=== PATIENT | female | born 1960 | race Hispanic/Latino ===

== ENCOUNTER 2018-12-25 11:35 | Emergency (ER) | payer SELFPAY ==
--- NOTE | 2018-12-25 12:58 | RAD REPORT ---
EXAM DESCRIPTION: RAD - Hand Left 3 View - 12/25/2018 12:41 pm CLINICAL HISTORY: Fall injury, swelling and redness to left hand COMPARISON: No comparisons FINDINGS: Soft tissue swelling affects the fifth digit. Small bony fragment projects over the dorsal aspect of the DIP joint of the fifth finger which could be a small fracture fragment. No dislocation
[2018-12-25] MEDS ORDERED: HYDROCODONE/APAP 5/325 MG TAB ONE (14:11)
--- NOTE | 2018-12-25 15:56 | EDPHYS ---
Physician Documentation [facility] Name: Pennie Welch Age: 58 yrs Sex: Female : 1960 Arrival Date: 12/25/2018 Time: 11:45 Bed 12 Private MD: ED Physician Kg Lancaster HPI: 12/25 14:04 This 58 yrs old Female presents to ER via Ambulatory with complaints of Finger Injury. kb 14:04 The patient or guardian reports decreased range of motion, injury, pain, swelling, kb tenderness. The complaints affect the left little finger. Context: The problem was sustained at home, resulted from a fall. Onset: The symptoms/episode began/occurred 1 week(s) ago. Modifying factors: The symptoms are alleviated by nothing, the symptoms are aggravated by movement. Associated signs and symptoms: The patient has no apparent associated signs or symptoms. Severity of symptoms: At their worst the symptoms were moderate, in the emergency department the symptoms are unchanged. The patient has not experienced similar symptoms in the past. The patient has not recently seen a physician. Pt reports she fell about a week ago hurt her left pinky finger. Reports pain has been worse with swelling over the last 3 days. . Historical: - Allergies: 14:19 Tylenol; iw 14:19 PENICILLINS; iw 14:19 Ibuprofen; iw - Immunization history:: Adult Immunizations unknown. - Social history:: Smoking status: unknown. - Ebola Screening: : Patient negative for fever greater than or equal to 101.5 degrees Fahrenheit, and additional compatible Ebola Virus Disease symptoms Patient denies exposure to infectious person Patient denies travel to an Ebola-affected area in the 21 days before illness onset No symptoms or risks identified at this time. ROS: 14:04 Constitutional: Negative for fever, chills, and weight loss, Cardiovascular: Negative kb for chest pain, palpitations, and edema, Respiratory: Negative for shortness of breath, cough, wheezing, and pleuritic chest pain, Abdomen/GI: Negative for abdominal pain, nausea, vomiting, diarrhea, and constipation, Skin: Negative for injury, rash, and discoloration, Neuro: Negative for headache, weakness, numbness, tingling, and seizure. 14:04 MS/extremity: Positive for injury or acute deformity, decreased range of motion, pain, swelling, tenderness, of the left little finger. Exam: 14:04 Constitutional: This is a well developed, well nourished patient who is awake, alert, kb and in no acute distress. Head/Face: Normocephalic, atraumatic. Chest/axilla: Normal chest wall appearance and motion. Nontender with no deformity. No lesions are appreciated. Cardiovascular: Regular rate and rhythm with a normal S1 and S2. No gallops, murmurs, or rubs. Normal PMI, no JVD. No pulse deficits. Respiratory: Lungs have equal breath sounds bilaterally, clear to auscultation and percussion. No rales, rhonchi or wheezes noted. No increased work of breathing, no retractions or nasal flaring. Abdomen/GI: Soft, non-tender, with normal bowel sounds. No distension or tympany. No guarding or rebound. No evidence of tenderness throughout. Skin: Warm, dry with normal turgor. Normal color with no rashes, no lesions, and no evidence of cellulitis. Neuro: Awake and alert, GCS 15, oriented to person, place, time, and situation. Cranial nerves II-XII grossly intact. Motor strength 5/5 in all extremities. Sensory grossly intact. Cerebellar exam normal. Normal gait. 14:04 Musculoskeletal/extremity: Extremities: grossly normal except: noted in the left little finger: decreased ROM, pain, swelling, tenderness, ROM: limited active range of motion due to pain, in the left little finger, Circulation is intact in all extremities. Sensation intact. Vital Signs: 12:05 BP 130 / 73; Pulse 70; Resp 16; Temp 97.8; Pulse Ox 100% on R/A; la1 MDM: 13:18 Patient medically screened. kb 14:03 Data reviewed: vital signs, nurses notes. Data interpreted: Pulse oximetry: on room air kb is 100 %. Interpretation: normal. Counseling: I had a detailed discussion with the patient and/or guardian regarding: the historical points, exam findings, and any diagnostic results supporting the discharge/admit diagnosis, radiology results, the need for outpatient follow up, a family practitioner, to return to the emergency department if symptoms worsen or persist or if there are any questions or concerns that arise at home. 12/25 14:02 Order name: Finger Splint; Complete Time: 14:19 kb Administered Medications: 14:19 Not Given (Patient Refused): [place] 5 mg-325 mg 1 tabs PO once; RASS on ADMIN: Combtv4, iw Very Agttd3, Agttd2, Rstlss1, AlertClm0, Drwsy-1, Lt Sdtn-2, Mod Sdtn-3, Dp Sdtn-4, UnArsble-5 Disposition: 18:43 Co-signature as Attending Physician, Kg Lancaster MD. rn Disposition: 12/25/18 14:12 Discharged to Home. Impression: Displaced fracture of medial phalanx of left little finger. - Condition is Stable. - Discharge Instructions: Finger Fracture, [id number]. - Prescriptions for Tramadol 50 mg Oral Tablet - take 1 tablet by ORAL route every 8 hours as needed; 12 tablet. - Medication Reconciliation Form, Thank You Letter, Antibiotic Education, Prescription Opioid Use form. - Follow up: Emergency Department; When: As needed; Reason: Worsening of condition. Follow up: Private Physician; When: 2 - 3 days; Reason: Recheck today's complaints, Continuance of care, Re-evaluation by your physician. Signatures: Nicolette Bowen, LOAN REVIEW OFFICER-C LOAN REVIEW OFFICER-Ckb Xi Olsen RN RN Joanna Coles ms, Roman, MD MD cabin furnishings installer: (The following items were deleted from the chart) 14:28 14:12 12/25/2018 14:12 Discharged to Home. Impression: Displaced fracture of medial ms phalanx of left little finger. Condition is Stable. Forms are Medication Reconciliation Form, Thank You Letter, Antibiotic Education, Prescription Opioid Use. Follow up: Emergency Department; When: As needed; Reason: Worsening of condition. Follow up: Private Physician; When: 2 - 3 days; Reason: Recheck today's complaints, Continuance of care, Re-evaluation by your physician. kb
--- NOTE | 2018-12-25 15:56 | ER ---
Nurse's Notes [facility] Name: Pennie Welch Age: 58 yrs Sex: Female : 1960 Arrival Date: 12/25/2018 Time: 11:45 Bed 12 Private MD: Diagnosis: Displaced fracture of medial phalanx of left little finger Presentation: 12/25 12:04 Presenting complaint: Patient states: About a week ago I had a fall, three days later I la1 started having pain in my left pinky finger. Finger appears red and swollen. Transition of care: patient was not received from another setting of care. Onset of symptoms was December 25, 2018. Risk Assessment: Do you want to hurt yourself or someone else? Patient reports no desire to harm self or others. Initial Sepsis Screen: Does the patient meet any 2 criteria? No. Patient's initial sepsis screen is negative. Does the patient have a suspected source of infection? No. Patient's initial sepsis screen is negative. Care prior to arrival: None. 12:04 Method Of Arrival: Ambulatory la1 12:04 Acuity: PEGGY 4 la1 Triage Assessment: 13:50 General: Appears in no apparent distress. Behavior is calm. Injury Description: Bruise iw sustained to left little finger. Historical: - Allergies: 14:19 Tylenol; iw 14:19 PENICILLINS; iw 14:19 Ibuprofen; iw - Immunization history:: Adult Immunizations unknown. - Social history:: Smoking status: unknown. - Ebola Screening: : Patient negative for fever greater than or equal to 101.5 degrees Fahrenheit, and additional compatible Ebola Virus Disease symptoms Patient denies exposure to infectious person Patient denies travel to an Ebola-affected area in the 21 days before illness onset No symptoms or risks identified at this time. Screenin:25 Abuse screen: Denies threats or abuse. Denies injuries from another. Nutritional iw screening: No deficits noted. Tuberculosis screening: No symptoms or risk factors identified. Fall Risk Fall in past 12 months (25 points). Assessment: 13:50 General: Appears in no apparent distress. Behavior is calm. Pain: Complains of pain in iw left little finger. Neuro: Level of Consciousness is awake, alert, obeys commands. Cardiovascular: Patient's skin is warm and dry. Respiratory: Respiratory effort is even, unlabored, Respiratory pattern is regular, symmetrical. Derm: Skin is intact, is healthy with good turgor. Musculoskeletal: Range of motion: limited in left little finger Swelling present in left little finger. Vital Signs: 12:05 BP 130 / 73; Pulse 70; Resp 16; Temp 97.8; Pulse Ox 100% on R/A; la1 ED Course: 11:45 Patient arrived in ED. as 12:05 Triage completed. la1 12:05 Arm band placed on left wrist. la1 12:50 Nicolette Bowen FNP-C is [facility]. kb 12:50 Kg Lancaster MD is Attending Physician. kb 13:18 Xi Olsen, RN is Primary Nurse. iw 13:50 Patient has correct armband on for positive identification. iw 14:25 No provider procedures requiring assistance completed. Patient did not have IV access iw during this emergency room visit. Administered Medications: 14:19 Not Given (Patient Refused): [place] 5 mg-325 mg 1 tabs PO once; RASS on ADMIN: Combtv4, iw Very Agttd3, Agttd2, Rstlss1, AlertClm0, Drwsy-1, Lt Sdtn-2, Mod Sdtn-3, Dp Sdtn-4, UnArsble-5 Outcome: 14:12 Discharge ordered by MD. kb 14:27 Discharged to home ambulatory. iw 14:27 Condition: good 14:27 Discharge instructions given to patient, family, Instructed on discharge instructions, follow up and referral plans. medication usage, Demonstrated understanding of instructions, follow-up care, medications, Prescriptions given X 1. 14:28 Patient left the ED. ms Signatures: Nicolette Bowen FNP-C FNP-Bertha Bailon as Xi Olsen, RN HUE iw Joanna Ardon ms, Lee, RN RN la1
[2018-12-25 18:04] VITALS: BP 130/73; TEMP 97.8; O2SAT 100
== END 2018-12-25 14:28 | disposition home or self-care (01) ==
LOC: ER 11:35
DX: S62.627A Displaced fracture of middle phalanx of left little finger, initial encounter for closed fracture (principal); W19.XXXA Unspecified fall, initial encounter; Y93.9 Activity, unspecified; Y92.9 Unspecified place or not applicable; Z88.0 Allergy status to penicillin; Z88.6 Allergy status to analgesic agent
CPT/HCPCS: 99282

== ENCOUNTER 2020-07-28 18:26 | Emergency (ER) | payer SELFPAY ==
--- NOTE | 2020-07-28 20:01 | RAD REPORT ---
EXAM DESCRIPTION: RAD - Shoulder Left 2 View - 07/28/2020 7:38 pm CLINICAL HISTORY: PAIN, decreased range of motion COMPARISON: No comparisons TECHNIQUE: Internal and external rotation views of the left shoulder were obtained. FINDINGS: No dislocation of the proximal humerus. AC joint is normal. Acromial humeral joint space i s normal. A 15 x 5 mm calcification is seen along the lateral margin of the humeral head. In this location, porter cific bursitis would be suspected. This is potentially a small bone avulsion from the greater tuberos ity though there is no trauma or precipitating event detailed. No pathologic bone process. IMPRESSION: Suspected left shoulder calcific bursitis. Bone avulsion is unlikely but not entirely excluded.
[2020-07-28] MEDS ORDERED: HYDROCODONE/APAP 10/325 TAB ONE (23:08)
[2020-07-28] MEDS ORDERED: KETOROLAC 30 MG/ML INJ ONE (23:08)
--- NOTE | 2020-07-28 23:49 | ER ---
Nurse's Notes [facility] Name: Pennie Welch Age: 60 yrs Sex: Female : 1960 Arrival Date: 07/28/2020 Time: 18:27 Bed 18 Private MD: Diagnosis: Bursitis of left shoulder Presentation: 07/28 19:12 Chief complaint: Patient states: Reports Tuesday she was preparing dinner and started em having left arm pain, states she is not able to lift arm due to the pain, reports the pain is making her nauseous. Coronavirus screen: At this time, the client does not indicate any symptoms associated with coronavirus-19. Ebola Screen: No symptoms or risks identified at this time. No acute neurological deficit is noted. Initial Sepsis Screen: Does the patient meet any 2 criteria? No. Patient's initial sepsis screen is negative. Does the patient have a suspected source of infection? No. Patient's initial sepsis screen is negative. Risk Assessment: Do you want to hurt yourself or someone else? Patient reports no desire to harm self or others. Onset of symptoms was July 25, 2020. 19:12 Method Of Arrival: Wheelchair em 19:12 Acuity: PEGGY 3 em Triage Assessment: 19:16 The onset of the patients symptoms was July 28, 2020 at 19:16. General: Appears em uncomfortable, Behavior is appropriate for age. Pain: Denies pain. Neuro: Level of Consciousness is awake, alert, obeys commands, Oriented to person, place, time. Historical: - Allergies: 19:15 PENICILLINS; em 19:15 Aspirin; em 22:54 NSAIDS; ea - PSHx: 19:15 c section; polyp removal; em - Immunization history:: Adult Immunizations up to date. - Social history:: Smoking status: Patient denies any tobacco usage or history of. Screenin:55 Abuse screen: Denies threats or abuse. Nutritional screening: No deficits noted. ea Tuberculosis screening: No symptoms or risk factors identified. Fall Risk None identified. Assessment: 19:16 VAN Scoring: Arm Drift: Patients demonstrates NO arm weakness. Patient is VAN Negative. ea 07/29 00:17 Reassessment: Patient and/or family updated on plan of care and expected duration. Pain ea level reassessed. Patient is alert, oriented x 3, equal unlabored respirations, skin warm/dry/pink. Discharge instruction given to patient verbalized the understanding of instruction. Pt left ED ambulatory tolerating well. Patient states feeling better. Vital Signs: 07/28 19:12 BP 123 / 83; Pulse 76; Resp 18; Temp 98.5; Pulse Ox 99% ; Weight 66.22 kg; Height 5 ft. em 6 in. (167.64 cm); 07/29 00:00 BP 128 / 70; Pulse 70; Resp 18; Temp 98.2; Pulse Ox 99% ; ea 07/28 19:12 Body Mass Index 23.56 (66.22 kg, 167.64 cm) em ED Course: 07/28 18:27 Patient arrived in ED. ds1 19:15 Triage completed. em 19:38 XRAY Shoulder LEFT 2 view In Process Unspecified. EDMS 22:41 Jimena Johnson RN is Primary Nurse. ea 22:41 Lan Avila NP is PHCP. pm1 22:41 Kg Lancaster MD is Attending Physician. pm1 22:41 Patient has correct armband on for positive identification. Bed in low position. Call ea light in reach. Side rails up X2. 22:55 Arm band placed on right wrist. Patient placed in an exam room, on a stretcher, on ea pulse oximetry. 07/29 00:18 No provider procedures requiring assistance completed. Patient did not have IV access ea during this emergency room visit. Administered Medications: 07/28 22:54 Drug: [place] (HYDROcodone-acetaminophen) 10 mg-325 mg 1 tabs Route: PO; ea 07/29 00:19 Follow up: Response: No adverse reaction; Pain is decreased ea 07/28 22:54 Not Given (pt reports she is allergic to NSAIDS): TORadol (ketorolac) 30 mg IM once ea Outcome: 23:49 Discharge ordered by . pm1 07/29 00:18 Discharged to home ambulatory, with family. ea Condition: stable Discharge instructions given to patient, Instructed on discharge instructions, follow up and referral plans. medication usage, Demonstrated understanding of instructions, follow-up care, medications, Prescriptions given X 1. 00:20 Patient left the ED. ea Signatures: Dispatcher [employer] [facility] Raymond Walters RN RN Shayna Santiago ds1 Lan Avila NP QUALITY SPECIALIST pm1 Jimena Johnson, RN RN ea
--- NOTE | 2020-07-28 23:50 | EDPHYS ---
Physician Documentation [facility] Name: Pennie Welch Age: 60 yrs Sex: Female : 1960 Arrival Date: 07/28/2020 Time: 18:27 Bed 18 Private MD: ED Physician Kg Lancaster HPI: 07/28 22:59 This 60 yrs old Female presents to ER via Wheelchair with complaints of Pain pm1 left shoulder. 22:59 The patient or guardian complains of pain, that is acute. pm1 22:59 left shoulder. Context: The problem was sustained at home, resulted from an unknown pm1 reason, The patient reports no obvious deformity. Decreased ROM due to pain. Onset: The symptoms/episode began/occurred 3 day(s) ago. Modifying factors: the symptoms are alleviated by remaining still, The symptoms are aggravated by movement. Associated signs and symptoms: Pertinent positives: Numbness in left arm nausea from the pain. Severity of symptoms: in the emergency department the symptoms are unchanged. Treatment prior to arrival includes: no previous treatment. The patient has not experienced similar symptoms in the past. The patient has not recently seen a physician. Historical: - Allergies: 19:15 PENICILLINS; em 19:15 Aspirin; em 22:54 NSAIDS; ea - PSHx: 19:15 c section; polyp removal; em - Immunization history:: Adult Immunizations up to date. - Social history:: Smoking status: Patient denies any tobacco usage or history of. ROS: 22:59 Constitutional: Negative for fever, chills, and weight loss. pm1 22:59 Cardiovascular: Negative for chest pain, palpitations, and edema, Respiratory: Negative for shortness of breath, cough, wheezing, and pleuritic chest pain, Back: Negative for injury and pain. 22:59 Skin: Negative for injury, rash, and discoloration. 22:59 Abdomen/GI: Positive for nausea, Negative for abdominal pain, vomiting, diarrhea. 22:59 MS/extremity: Positive for pain, of the left shoulder. 22:59 Neuro: Positive for numbness, of the left arm, Negative for headache, weakness. Exam: 22:59 Constitutional: This is a well developed, well nourished patient who is awake, alert, pm1 and in no acute distress. Head/Face: Normocephalic, atraumatic. Neck: Trachea midline, no thyromegaly or masses palpated, and no cervical lymphadenopathy. Supple, full range of motion without nuchal rigidity, or vertebral point tenderness. No Meningismus. 22:59 Back: No spinal tenderness. No costovertebral tenderness. Full range of motion. Skin: Warm, dry with normal turgor. Normal color with no rashes, no lesions, and no evidence of cellulitis. 22:59 Cardiovascular: Rate: normal, Rhythm: regular, Pulses: no pulse deficits are appreciated. 22:59 Respiratory: Exam negative for acute changes, respiratory distress, shortness of breath. 22:59 Musculoskeletal/extremity: Extremities: grossly normal except: noted in the left shoulder: decreased ROM, tenderness, There is no evidence of swelling, Circulation is intact in all extremities. the left arm Sensation intact. 22:59 Neuro: Exam negative for acute changes, Orientation: is normal, Mentation: is normal, Motor: is normal, moves all fours. Vital Signs: 19:12 BP 123 / 83; Pulse 76; Resp 18; Temp 98.5; Pulse Ox 99% ; Weight 66.22 kg; Height 5 ft. em 6 in. (167.64 cm); 07/29 00:00 BP 128 / 70; Pulse 70; Resp 18; Temp 98.2; Pulse Ox 99% ; ea 07/28 19:12 Body Mass Index 23.56 (66.22 kg, 167.64 cm) em MDM: 07/28 22:54 Patient medically screened. pm1 23:30 Data reviewed: vital signs. Data interpreted: Pulse oximetry: on room air is 99 %. pm1 Interpretation: normal. 23:47 Counseling: I had a detailed discussion with the patient and/or guardian regarding: the pm1 historical points, exam findings, and any diagnostic results supporting the discharge/admit diagnosis. 07/28 19:17 Order name: XRAY Shoulder LEFT 2 view; Complete Time: 22:42 em 07/28 23:19 Order name: Sling; Complete Time: 00:19 pm1 Administered Medications: 22:54 Drug: [place] (HYDROcodone-acetaminophen) 10 mg-325 mg 1 tabs Route: PO; ea 07/29 00:19 Follow up: Response: No adverse reaction; Pain is decreased ea 07/28 22:54 Not Given (pt reports she is allergic to NSAIDS): TORadol (ketorolac) 30 mg IM once ea Disposition: 07/29 19:01 Co-signature as Attending Physician, Kg Lancaster MD. rn Disposition: 07/28/20 23:49 Discharged to Home. Impression: Bursitis of left shoulder. - Condition is Stable. - Discharge Instructions: Bursitis, How to Use a Sling. - Prescriptions for Tramadol 50 mg Oral Tablet - take 1 tablet by ORAL route every 8 hours as needed; 12 tablet. - Medication Reconciliation Form, Thank You Letter, Antibiotic Education, Prescription Opioid Use, Work release form, Family Work Release form. - Follow up: Emergency Department; When: As needed; Reason: Worsening of condition. Follow up: Private Physician; When: 2 - 3 days; Reason: Recheck today's complaints, Continuance of care, Re-evaluation by your physician. - Problem is new. - Symptoms have improved. Signatures: Dispatcher [employer] Raymond Lam RN RN em Nieto, Roman, MD MD rn Marinas, Patrick, SCRAP BURNER SCRAP BURNER pm1 Jimena Johnson RN RN ea Corrections: (The following items were deleted from the chart) 00:20 05 23:49 07/28/2020 23:49 Discharged to Home. Impression: Bursitis of left shoulder. ea Condition is Stable. Forms are Medication Reconciliation Form, Thank You Letter, Antibiotic Education, Prescription Opioid Use. Follow up: Emergency Department; When: As needed; Reason: Worsening of condition. Follow up: Private Physician; When: 2 - 3 days; Reason: Recheck today's complaints, Continuance of care, Re-evaluation by your physician. Problem is new. Symptoms have improved. pm1
[2020-07-29 00:57] VITALS: O2SAT 99
[2020-07-29 00:58] VITALS: BP 128/70; TEMP 98.2
== END 2020-07-29 00:20 | disposition home or self-care (01) ==
LOC: ER 18:26
DX: M75.52 Bursitis of left shoulder (principal); Z88.0 Allergy status to penicillin; Z88.6 Allergy status to analgesic agent
CPT/HCPCS: 99284